=== PATIENT | male | born 1990 | race Caucasian/White ===

== ENCOUNTER 2019-07-03 09:53 | Inpatient (IN) ==
[2019-07-03] MEDS ORDERED: BISACODYL 5 MG TABLET PO PRN (10:50)
[2019-07-03] MEDS ORDERED: ACETAMINOPHEN 325 MG TABLET PO PRN (10:50)
[2019-07-03] MEDS ORDERED: ZALEPLON 5 MG CAPSULE PO PRN (10:50)
[2019-07-03] MEDS ORDERED: NICOTINE 21 MG/24 HR PATCH TRANSDERM PRN (10:50)
[2019-07-03 11:31] LABS: Basophils # 0.1 10*3/uL (0.0-0.2); Basophils % 0.4 % (0.0-0.8); Eosinophils # 0.1 10*3/uL (0.0-0.87); Eosinophils % 0.6 % (0.00-10.9); Hematocrit 45.6 VOL% (42.0-52.0); Hemoglobin 14.9 GM/DL (14.0-18.0); Immature Granulocytes % 0.3 %; Immature Granulocytes Absolute 0.04 #; Lymphocytes # 1.3 10*3/uL (1.4-4.0); Lymphocytes % 10.9 % (21.2-54.2); Mean Corpuscular HGB Conc 32.7 GM/DL (32-36); Mean Corpuscular Volume 86.5 FL (87-102); Mean Platelet Volume 10.4 FL (9.6-12.0); Monocytes % 6.8 % (1.7-12.7); Platelet Count 203 T/CUMM (130-400); Red Blood Count 5.27 MC/CUMM (3.8-5.5); Red Cell Distribution Width 14.2 % (9.3-17.3); White Blood Count 11.8 T/CUMM (4-12)
[2019-07-03] MEDS: chlordiazePOXIDE 25 MG CAPSULE PO SCH ×2 (11:39→18:02)
[2019-07-03] MEDS: NICOTINE 21 MG/24 HR PATCH TRANSDERM SCH (11:39)
[2019-07-03 11:53] LABS: Albumin 4.3 G/DL (3.4-5.0); Bilirubin,Total 0.6 MG/DL (0.2-1.0); Calcium 9.1 MG/DL (8.5-10.1); Osmolality,Calculated 275.5 MOS/KG (273-304); Total Protein 7.7 G/DL (6.4-8.3)
[2019-07-03] MEDS: ONDANSETRON 4 MG/2 ML VIAL IV PRN ×2 (16:43→22:43)
[2019-07-03] MEDS: LORazepam 2 MG/1 ML VIAL IV PRN (19:24)
[2019-07-04] MEDS: chlordiazePOXIDE 25 MG CAPSULE PO SCH ×4 (00:03→20:21)
[2019-07-04] MEDS: NICOTINE 21 MG/24 HR PATCH TRANSDERM SCH (09:02)
[2019-07-04] MEDS: ONDANSETRON 4 MG/2 ML VIAL IV PRN (20:19)
[2019-07-04] MEDS: LORazepam 2 MG/1 ML VIAL IV PRN (21:45)
[2019-07-05] MEDS: chlordiazePOXIDE 25 MG CAPSULE PO SCH ×3 (04:00→20:55)
[2019-07-05] MEDS: NICOTINE 21 MG/24 HR PATCH TRANSDERM SCH (08:43)
[2019-07-05] MEDS: LORazepam 2 MG/1 ML VIAL IV PRN ×3 (09:28→23:13)
[2019-07-06] MEDS: chlordiazePOXIDE 25 MG CAPSULE PO SCH (02:49)
[2019-07-06 08:02] VITALS: BP 110/73
[2019-07-06 08:10] LABS: Basophils # 0.1 10*3/uL (0.0-0.2); Basophils % 0.8 % (0.0-0.8); Eosinophils # 0.4 10*3/uL (0.0-0.87); Eosinophils % 6.7 % (0.00-10.9); Hematocrit 51.5 VOL% (42.0-52.0); Hemoglobin 16.8 GM/DL (14.0-18.0); Immature Granulocytes % 0.2 %; Immature Granulocytes Absolute 0.01 #; Lymphocytes # 1.5 10*3/uL (1.4-4.0); Lymphocytes % 22.7 % (21.2-54.2); Mean Corpuscular HGB Conc 32.6 GM/DL (32-36); Mean Corpuscular Volume 87.1 FL (87-102); Mean Platelet Volume 10.5 FL (9.6-12.0); Monocytes % 16.2 % (1.7-12.7); Neutrophils % 53.4 % (38.7-73.9); Platelet Count 185 T/CUMM (130-400); Red Blood Count 5.91 MC/CUMM (3.8-5.5); Red Cell Distribution Width 13.9 % (9.3-17.3); White Blood Count 6.4 T/CUMM (4-12)
[2019-07-06] MEDS: NICOTINE 21 MG/24 HR PATCH TRANSDERM SCH (08:24)
[2019-07-06 08:29] LABS: Eosinophils 6 % (0-10); Lymphocytes 22 % (20-55); Platelet Estimate Adequate; Segmented Neutrophils 62 % (50-85); Total Cells Counted 100
[2019-07-06 08:31] LABS: Calcium 9.3 MG/DL (8.5-10.1); Osmolality,Calculated 273.8 MOS/KG (273-304)
[2019-07-06] MEDS ORDERED: INFLUENZA VIRUS VACCINE 0.5 ML SYRINGE IM ONE (09:00)
== END 2019-07-06 11:00 | disposition home or self-care (01) | DRG 897 ==
LOC: SUATTDRO 10:26 → N.4E 10:26
PROVIDERS: ADMIT Internal Medicine Cardiovascular Disease; ATTEND Internal Medicine Nephrology